=== PATIENT | female | born 2000 | race Caucasian/White ===

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

== ENCOUNTER 2022-01-22 10:03 | Emergency (ER) | payer OTHER ==
[2022-01-22 10:21] VITALS: BMI 21.1
[2022-01-22 12:41] LABS: HEMATOCRIT 20.7 % (32.4-45.2); MCHC 28.2 g/dl (32.0-36.0); MEAN CELL VOLUME 54.3 fl (80-96); MEAN PLT VOLUME 8.6 fl (7.5-11.1); PLATELET COUNT 515 10^3/uL (134-434); RBC 3.82 M/mm3 (3.60-5.2); RDW 19.1 % (11.6-15.6); RETICULOCYTES 1.32 % (0.5-1.5); WHITE BLOOD COUNT 3.9 K/mm3 (4.0-10.0)
[2022-01-22 12:43] LABS: ADD RBC MORPHOLOGY YES; HEMOGLOBIN 5.8 GM/dL (10.7-15.3); MCH 15.3 pg (25.7-33.7)
[2022-01-22 12:50] LABS: CALCIUM 8.8 mg/dL (8.5-10.1)
[2022-01-22 12:51] LABS: ALBUMIN 3.8 g/dl (3.4-5.0); BLOOD UREA NITROGEN 13.2 mg/dL (7-18)
[2022-01-22 12:54] LABS: CREATININE 0.5 mg/dL (0.55-1.3); IRON SERUM 11 ug/dL (50-175); TOTAL IRON BINDING CAPACITY 542 ug/dL (250-450)
[2022-01-22 12:55] LABS: BILIRUBIN,TOTAL 0.3 mg/dL (0.2-1); TOT PROT 7.6 g/dl (6.4-8.2)
[2022-01-22 12:58] LABS: LDH 264 U/L (84-246)
[2022-01-22 14:07] LABS: ANISOCYTOSIS 3+; MACROCYTOSIS 0; OVALOCYTE 2+
[2022-01-22 22:55] LABS: BASO % 0.9 % (0-2.0); EOS % 1.5 % (0-4.5); HEMATOCRIT 28.7 % (32.4-45.2); HEMOGLOBIN 9.2 GM/dL (10.7-15.3); LYMPH % 23.3 % (8-40); MCH 20.5 pg (25.7-33.7); MCHC 32.1 g/dl (32.0-36.0); MEAN PLT VOLUME 8.3 fl (7.5-11.1); NEUT % 64.3 % (42.8-82.8); PLATELET COUNT 433 10^3/uL (134-434); RDW 30.7 % (11.6-15.6); RETICULOCYTES 1.16 % (0.5-1.5)
[2022-01-22 23:17] LABS: MEAN CELL VOLUME 63.8 fl (80-96)
[2022-01-22 23:26] VITALS: BP 114/72; PULSE 78; RESP 16; TEMP 98.8
== END 2022-01-22 23:38 | disposition home or self-care (01) ==
LOC: JER 10:03
DX: D64.9 Anemia, unspecified (principal)
CPT/HCPCS: 0241U-QW; 36415; 36430; 80053; 82272; 82728; 83540; 83550; 83615; 85025; 85045; 86850; 86900; 86901; 86922; 93005; 93010; 99284-25; P9058

== ENCOUNTER 2022-02-22 05:03 | Day surgery (SDC) | payer OTHER ==
[2022-02-22 13:29] VITALS: BMI 20.9
[2022-02-22 15:44] VITALS: TEMP 98
[2022-02-22 16:22] VITALS: BP 109/77; PULSE 61; RESP 15
== END 2022-02-22 16:47 | disposition home or self-care (01) ==
LOC: JASU-ENDO 05:03
PROVIDERS: ATTEND Internal Medicine Gastroenterology
PROC: 0DB78ZX Excision of Stomach, Pylorus, Via Natural or Artificial Opening Endoscopic, Diagnostic (ICD-10-PCS; 2022-02-22)
PROC: 0DB28ZX Excision of Middle Esophagus, Via Natural or Artificial Opening Endoscopic, Diagnostic (ICD-10-PCS; 2022-02-22)
PROC: 0DB38ZX Excision of Lower Esophagus, Via Natural or Artificial Opening Endoscopic, Diagnostic (ICD-10-PCS; 2022-02-22)
PROC: 0DB98ZX Excision of Duodenum, Via Natural or Artificial Opening Endoscopic, Diagnostic (ICD-10-PCS; principal; 2022-02-22 13:45)
DX: D50.9 Iron deficiency anemia, unspecified (principal); K29.50 Unspecified chronic gastritis without bleeding
CPT/HCPCS: 81025; 88305-TC; 88342-TC

== ENCOUNTER 2022-03-03 13:14 | Day surgery (SDC) | payer OTHER ==
[~2022-03-03 13:14] MED LIST: IRON SUCROSE INJECTION 300 MG in SODIUM CHLORIDE 250 ML IVPB ONE
[2022-03-03 15:01] VITALS: BP 121/75; PULSE 78; RESP 20; TEMP 98.1
== END 2022-03-03 15:30 | disposition home or self-care (01) ==
LOC: JONCNONCHE 13:14
PROVIDERS: ATTEND Internal Medicine Hematology & Oncology
PROC: 3E033GC Introduction of Other Therapeutic Substance into Peripheral Vein, Percutaneous Approach (ICD-10-PCS; principal; 2022-03-03)
DX: D50.9 Iron deficiency anemia, unspecified (principal)
CPT/HCPCS: 96365; J1756

== ENCOUNTER 2022-03-17 13:28 | Day surgery (SDC) | payer OTHER ==
[~2022-03-17 13:28] MED LIST changes: +ACETAMINOPHEN 325 MG TABLET (FP) PO ONE; +ONDANSETRON INJECTION 8 MG in SODIUM CHLORIDE 50 ML IVPB ONE
[2022-03-17 16:16] VITALS: BP 120/75; PULSE 68; RESP 18; TEMP 97.7
== END 2022-03-17 16:21 | disposition home or self-care (01) ==
LOC: JONCNONCHE 13:28
PROVIDERS: ATTEND Internal Medicine Hematology & Oncology
PROC: 3E033GC Introduction of Other Therapeutic Substance into Peripheral Vein, Percutaneous Approach (ICD-10-PCS; principal; 2022-03-17)
DX: D50.9 Iron deficiency anemia, unspecified (principal)
CPT/HCPCS: J1756

== ENCOUNTER 2022-03-24 13:44 | Day surgery (SDC) | payer OTHER ==
[~2022-03-24 13:44] MED LIST changes: +HYDROCORTISONE SOD SUCCINATE 100 MG/2 ML VIAL IVPUSH PRN; +diphenhydrAMINE HCL 25 MG CAPSULE (FP) PO PRN
[2022-03-24 15:22] VITALS: RESP 16
[2022-03-24 16:17] VITALS: BP 112/67; PULSE 72; TEMP 98.3
== END 2022-03-24 16:18 | disposition home or self-care (01) ==
LOC: JONCNONCHE 13:44
PROVIDERS: ATTEND Internal Medicine Hematology & Oncology
PROC: 3E033GC Introduction of Other Therapeutic Substance into Peripheral Vein, Percutaneous Approach (ICD-10-PCS; principal; 2022-03-24)
DX: D50.9 Iron deficiency anemia, unspecified (principal)
CPT/HCPCS: 96365; J1756

== ENCOUNTER 2022-03-31 13:35 | Day surgery (SDC) | payer OTHER ==
[~2022-03-31 13:35] MED LIST changes: -HYDROCORTISONE SOD SUCCINATE 100 MG/2 ML VIAL IVPUSH PRN; -diphenhydrAMINE HCL 25 MG CAPSULE (FP) PO PRN
[2022-03-31 17:24] VITALS: BP 111/57; PULSE 69; RESP 18; TEMP 97.8
== END 2022-03-31 14:58 | disposition home or self-care (01) ==
LOC: JONCNONCHE 13:35
PROVIDERS: ATTEND Internal Medicine Hematology & Oncology
PROC: 3E033GC Introduction of Other Therapeutic Substance into Peripheral Vein, Percutaneous Approach (ICD-10-PCS; principal; 2022-03-31)
DX: D50.9 Iron deficiency anemia, unspecified (principal)
CPT/HCPCS: 96365; J1756; J2405

== ENCOUNTER 2022-10-04 05:26 | Day surgery (SDC) | payer OTHER ==
[2022-09-29 16:22] VITALS: BMI 21.9
[2022-10-04 11:06] VITALS: TEMP 97.8
[2022-10-04 11:42] VITALS: PULSE 64
[2022-10-04 11:43] VITALS: BP 113/68; RESP 20
== END 2022-10-04 12:12 | disposition home or self-care (01) ==
LOC: JASU-ENDO 05:26
PROVIDERS: ATTEND Internal Medicine Gastroenterology
PROC: 0DJD8ZZ Inspection of Lower Intestinal Tract, Via Natural or Artificial Opening Endoscopic (ICD-10-PCS; principal; 2022-10-04 10:15)
DX: D50.9 Iron deficiency anemia, unspecified (principal); K64.8 Other hemorrhoids
CPT/HCPCS: 81025

== ENCOUNTER 2023-11-20 11:20 | Day surgery (SDC) | payer OTHER ==
[2023-11-20] MEDS: ACETAMINOPHEN 325 MG TABLET (FP) PO ONE (11:31)
[2023-11-20] MEDS: IRON SUCROSE COMPLEX 200 MG in SODIUM CHLORIDE 100 ML IVPB ONE (11:52)
[2023-11-20 13:48] VITALS: RESP 18
[2023-11-20 14:05] VITALS: BP 111/70; PULSE 80; TEMP 98.1
== END 2023-11-20 12:55 | disposition home or self-care (01) ==
LOC: JONCNONCHE 11:20 → J7W 11:20 → JONCNONCHE 12:36
PROVIDERS: ATTEND Internal Medicine Hematology & Oncology
PROC: 3E033GC Introduction of Other Therapeutic Substance into Peripheral Vein, Percutaneous Approach (ICD-10-PCS; principal; 2023-11-20)
DX: E61.1 Iron deficiency (principal)
CPT/HCPCS: 96365

== ENCOUNTER 2023-11-27 11:07 | Day surgery (SDC) | payer OTHER ==
[2023-11-27] MEDS: ACETAMINOPHEN 325 MG TABLET (FP) PO ONE (11:15)
[2023-11-27] MEDS: IRON SUCROSE COMPLEX 200 MG in SODIUM CHLORIDE 100 ML IVPB ONE (11:30)
[2023-11-27 18:08] VITALS: BP 111/69; PULSE 73; RESP 20; TEMP 97.6
== END 2023-11-27 12:30 | disposition home or self-care (01) ==
LOC: JONCNONCHE 11:07 → J7W 11:07 → JONCNONCHE 12:30
PROVIDERS: ATTEND Internal Medicine Hematology & Oncology
PROC: 3E033GC Introduction of Other Therapeutic Substance into Peripheral Vein, Percutaneous Approach (ICD-10-PCS; principal; 2023-11-27)
DX: E61.1 Iron deficiency (principal)
CPT/HCPCS: 96365

== ENCOUNTER 2023-12-11 17:11 | Day surgery (SDC) | payer OTHER ==
[2023-12-11] MEDS: ACETAMINOPHEN 325 MG TABLET (FP) PO ONE (13:26)
[2023-12-11] MEDS: IRON SUCROSE INJECTION 200 MG in SODIUM CHLORIDE 100 ML IVPB ONE (13:27)
[2023-12-11 18:11] VITALS: PULSE 72; RESP 20; TEMP 97.1
[2023-12-11 18:14] VITALS: BP 102/67
== END 2023-12-11 18:22 | disposition home or self-care (01) ==
LOC: JONCNONCHE 17:11 → J7W 17:12 → JONCNONCHE 18:22
PROVIDERS: ATTEND Internal Medicine Hematology & Oncology
PROC: 3E033GC Introduction of Other Therapeutic Substance into Peripheral Vein, Percutaneous Approach (ICD-10-PCS; principal; 2023-12-11)
DX: D50.9 Iron deficiency anemia, unspecified (principal)
CPT/HCPCS: 96365; J1756